=== PATIENT | male | born 1995 | race Caucasian/White ===

== ENCOUNTER 2020-10-02 08:40 | Emergency (ER) | payer OTHER, SELFPAY ==
[2020-10-02 08:43] VITALS: BP 174/89; PULSE 96; RESP 16; TEMP 36.9; O2SAT 96; BMI 39.5
--- NOTE | 2020-10-02 09:28 | ED.SKABFB ---
HPI - Skin/Abscess/Foreign Bdy General Chief complaint: Skin/Abscess/Foreign Body Stated complaint: abcess Time Seen by Provider: 10/02/20 08:42 Source: patient Mode of arrival: ambulatory Limitations: no limitations History of Present Illness MD complaint: abscess/boil Onset (ago): day(s) (2) Tetanus up to date: yes Location: buttocks Severity: moderate Quality: burning and aching Pain Consistency: constant Relieving factors: none Exacerbating factors: movement Context: other (hx of boils) Associated symptoms: denies other symptoms Treatments prior to arrival: none Related Data Previous Rx's Medication Instructions Recorded cephalexin 500 mg PO TID 7 Days #21 cap 10/02/20 doxycycline hyclate 100 mg PO BID 7 Days #14 cap 10/02/20 hydrocodone-acetaminophen 1 tab PO Q6H PRN #12 tab 10/02/20 ondansetron 4 mg PO Q8H PRN #20 tab 10/02/20 Allergies Allergy/AdvReac Type Severity Reaction Status Date / Time No Known Allergies Allergy Verified 10/02/20 08:49 [No Known Allergies*] Review of Systems Review of Systems: Constitutional : No Fever, No Chills ENT/Mouth : No sore throat, No Rhinorrhea Eyes: No Eye Pain, No Swelling, No Redness Cardiovascular : No Chest Pain, No SOB Respiratory : No Cough, No Sputum Gastrointestinal : No Nausea, No Vomiting, No Diarrhea, No abdominal Pain Genitourinary : No Dysuria, No Hematuria Musculoskeletal : No joint pain, No Myalgias, No Joint Swelling Skin : pos Skin Lesions, positive skin rash Neuro : No Weakness, No Numbness, No Headache Psych : No Anxiety, No Depression Heme/Lymph: No Bruising, No Bleeding,No Lymphadenopathy Endocrine : No Polyuria, No Polydipsia All other systems reviewed and are negative PMFSH Past Medical History Attestation statement: The following information was validated with the patient. Medical History Diabetes Pilonidal cyst Social History Social History Alcohol intake: never Smoking Status: Never smoker Smoked in Last 30 Days: No Use of substances other than those prescribed or required for medical reasons: No Advance Directives: No Advance Directives Information Provided: No Physical Exam Vital Signs: Vital Signs: Last Vital Signs Temp 98.5 F 10/02/20 08:43 Pulse 96 10/02/20 08:43 Resp 16 10/02/20 08:43 BP 174/89 H 10/02/20 08:43 Pulse Ox 96 10/02/20 08:43 Body Mass Index 39.5 Appearance: Alert. Oriented X3. No acute distress. Eyes: Pupils equal, round and reactive to light. ENT: Pharynx normal. Neck: Normal inspection. Neck supple. CVS: Normal heart rate and rhythm. Pulses normal. Respiratory: No respiratory distress. Breath sounds normal. Abdomen: Soft and nontender. Skin: Skin warm and dry. Normal skin color. Normal skin turgor. + R buttock large 4cm abscess, does not involve rectum, no crepitus, no pain out of proportion no extension of erythema Extremities: No lower extremity edema. No calf ttp Neuro: Oriented X 3. No motor deficit. No sensory deficit. Procedures Abscess I/D Site: other (R buttock) Side (if applicable): right Local Anesthetic: lidocaine 1% Amount of anesthesia used (mL): 5 Technique: needle aspiration and incised with blade Amount of fluid expressed (mL): 10 Sent for culture/gram staining?: No Irrigation: Yes Packing used?: iodoform MDM - Skin/Abscess/Foreign Bdy MDM Narrative Medical decision making narrative: 25 yo male with DM and hx of boils here with L buttock abscess, no systemic symptoms, no signs of deeper infection will need I/D and oral antibiotics, dispo per results and findings. Discharge Plan Discharge Clinical Impression: Abscess of skin or subcutaneous tissue Qualifiers: Site of cutaneous abscess: buttock Qualified Code(s): L02.31 - Cutaneous abscess of buttock Patient Disposition: Home, Self-Care Instructions: Abscess (ED) Additional Instructions: return to ED for any worsening symptoms or concerns Prescriptions: New hydrocodone-acetaminophen 5-325 mg tablet 1 tab PO Q6H PRN (Reason: pain) Qty: 12 RF: 0 ondansetron 4 mg tablet,disintegrating 4 mg PO Q8H PRN (Reason: nausea and vomiting) Qty: 20 RF: 0 cephalexin 500 mg capsule 500 mg PO TID 7 Days Qty: 21 RF: 0 doxycycline hyclate 100 mg capsule 100 mg PO BID 7 Days Qty: 14 RF: 0 Referrals: Tim Bell MD [Physician] - 1 week Martin Wilkinson MD [Primary Care Provider] - 2 days (wound check or ED) Stand Alone Forms: Work/School Release
[2020-10-02] MEDS: Lidocaine 4 % Cream KIT 1 APPL TOPICAL (09:42)
[2020-10-02] MEDS: Lidocaine HCl 1 % 20 ML VIAL SUBCUT (09:42)
[2020-10-02] MEDS: HYDROmorphone HCl 2 MG/ML VIAL IM (09:43)
== END 2020-10-02 10:33 | disposition home or self-care (01) ==
PROVIDERS: Emergency Provider Emergency Medicine; PCP Internal Medicine
DX: L02.31 Cutaneous abscess of buttock (principal); Z79.899 Other long term (current) drug therapy
CPT/HCPCS: 10060; 96372; 99283; 99284; J1170

== ENCOUNTER 2021-05-18 00:25 | Emergency (ER) | payer OTHER, SELFPAY ==
[2021-05-18 01:00] VITALS: BP 185/89; PULSE 94; RESP 20; TEMP 36.4; O2SAT 97; BMI 39.7
== END 2021-05-18 04:12 | disposition left against medical advice (07) ==
PROVIDERS: Emergency Provider Emergency Medicine
DX: L72.9 Follicular cyst of the skin and subcutaneous tissue, unspecified (principal)
CPT/HCPCS: 99281; 99282

== ENCOUNTER 2021-05-19 01:58 | Emergency (ER) | payer OTHER, SELFPAY ==
[2021-05-19 02:16] VITALS: BP 157/9; PULSE 98; RESP 14; TEMP 37.3; O2SAT 97; BMI 39.4
--- NOTE | 2021-05-19 03:06 | ED.SKABFB ---
HPI - Skin/Abscess/Foreign Bdy General Chief complaint: Skin/Abscess/Foreign Body Stated complaint: PT was here last night, cist underneath arm Time Seen by Provider: 05/19/21 03:01 Source: patient Mode of arrival: ambulatory Limitations: no limitations History of Present Illness HPI narrative: 25-year-old male who presents emergency department for evaluation of a left chest wall skin abscess. He states that the abscess started out as a small area approximately 1 week prior and is gotten progressively larger. He states that today there was a ?montalvo ?in the center of the abscess which he popped and try to drain the abscess unsuccessfully. This morning, the pain got worse therefore came to the emergency department for evaluation. Patient states that he has had 3 previous abscesses that was required drainage. He denied fever, chills, myalgias, arthralgias or fatigue. Related Data Previous Rx's Medication Instructions Recorded cephalexin 500 mg PO TID 7 Days #21 cap 10/02/20 doxycycline hyclate 100 mg PO BID 7 Days #14 cap 10/02/20 hydrocodone-acetaminophen 1 tab PO Q6H PRN #12 tab 10/02/20 ondansetron 4 mg PO Q8H PRN #20 tab 10/02/20 cephalexin 500 mg PO QID 5 Days #20 cap 05/19/21 Allergies Allergy/AdvReac Type Severity Reaction Status Date / Time No Known Allergies Allergy Verified 05/19/21 02:15 [No Known Allergies*] Review of Systems Review of Systems: Yes all other systems are reviewed and are negative PMFSH Past Medical History PMFSH Narrative: Social history: The patient denies tobacco use, he drinks alcohol rarely, he tries drug use. Medical History Diabetes Pilonidal cyst Social History Social History Alcohol intake: never Advance Directives: No Advance Directives Information Provided: No Physical Exam Vital Signs: Vital Signs: Last Vital Signs Temp 99.1 F 05/19/21 02:16 Pulse 98 05/19/21 02:16 Resp 14 05/19/21 02:16 BP 157/9 H 05/19/21 02:16 Pulse Ox 97 05/19/21 02:16 Body Mass Index 39.4 Const: General: cooperative and healthy appearing Orientation/consciousness: oriented to person and oriented to place Limitations: no limitations HENMT: Head: Yes normal to inspection Chest: Chest palpation & inspection: normal inspection of the chest Skin: Other: The patient has a 5 x 5 cm abscess to his left chest wall just inferior to the axillary region with increased warmth to the surrounding erythema, the abscess is flocculent. Neuro: General: oriented to person and oriented to place Psych: Appearance: grossly normal and well kempt Mental Status: mental status grossly normal Speech and movement: Normal speech and movement present Affect: normal affect Course Course Course Narrative: 25-year-old male who presents emergency department for evaluation of a left chest wall abscess x1 week. The patient's abscess was flocculent and ready to be drained. The abscess was drained approximately 50 cc of purulent material was expressed from the incision site, the abscess was packed with quarter-inch iodoform gauze. Patient was given ibuprofen 600 mg and Tylenol 975 mg orally for his pain. He was also given Keflex 500 mg orally to treat for possible surrounding cellulitis. Patient was started on Keflex 500 mg 4 times a day for 5 days. The patient was given verbal and printed instructions prior to discharge. The patient was advised to follow-up with their PCP in 2 days and to return to the emergency department if their symptoms get worse or if they develop any new symptoms that are concerning to them Procedures Abscess I/D Site: chest Side (if applicable): left Local Anesthetic: lidocaine 2% Amount of anesthesia used (mL): 10 Technique: incised with blade and other (Adhesions broken up in the wound with hemostat) Amount of fluid expressed (mL): 50 Sent for culture/gram staining?: Yes Irrigation: No Packing used?: iodoform (1/4 inch) Discharge Plan Discharge Clinical Impression: Cellulitis, Abscess of skin or subcutaneous tissue, Encounter for incision and drainage procedure Patient Disposition: Home, Self-Care Instructions: Abscess Incision and Drainage (DC) Additional Instructions: The abscess was packed with quarter-inch iodoform gauze. You can remove this packing in 4 days. If it falls off a for 4 days, it does not need to be reinserted. Take ibuprofen 200 mg pills, 3 pills every 6 hours as needed for pain. Take Tylenol (acetaminophen) 500 mg pills, 2 pills every 4 to 6 hours as needed for pain. Take Keflex 500 mg pills, 1 pill 4 times a day for 5 days. The patient was given verbal and printed instructions prior to discharge. The patient was advised to follow-up with their PCP in 2 days and to return to the emergency department if their symptoms get worse or if they develop any new symptoms that are concerning to them Prescriptions: New cephalexin 500 mg capsule 500 mg PO QID 5 Days Qty: 20 RF: 0 No Action hydrocodone-acetaminophen 5-325 mg tablet 1 tab PO Q6H PRN (Reason: pain) Qty: 12 RF: 0 ondansetron 4 mg tablet,disintegrating 4 mg PO Q8H PRN (Reason: nausea and vomiting) Qty: 20 RF: 0 cephalexin 500 mg capsule 500 mg PO TID 7 Days Qty: 21 RF: 0 doxycycline hyclate 100 mg capsule 100 mg PO BID 7 Days Qty: 14 RF: 0
[2021-05-19] MEDS: Ibuprofen 600 MG TABLET PO (03:13)
[2021-05-19] MEDS: cephALEXin 500 MG CAPSULE PO (03:13)
[2021-05-19] MEDS: Lidocaine HCl 2 % MPF 5 ML VIAL INFILTRATI ×2 (03:13)
[2021-05-19] MEDS: Acetaminophen 325 MG TABLET 975 MG PO (03:13)
--- NOTE | 2021-05-19 03:20 | PC.NURSE ---
CLEAN DRY DRESSING APPLIED OVER WOUND. EDUCATED ON SIGNS AND SYMPTOMS OF INFECTION.
== END 2021-05-19 03:28 | disposition home or self-care (01) ==
PROVIDERS: Emergency Provider Emergency Medicine Emergency Medical Services; PCP Internal Medicine
DX: L02.213 Cutaneous abscess of chest wall (principal); L03.313 Cellulitis of chest wall; E11.9 Type 2 diabetes mellitus without complications
CPT/HCPCS: 10060; 87071; 87205; 99283; 99284

== ENCOUNTER 2021-09-20 08:21 | Outpatient (REF) | payer OTHER, SELFPAY ==
[2021-09-20 09:00] LABS: COVID-19 Test Negative (Negative)
== END 2021-09-20 08:22 | disposition home or self-care (01) ==
LOC: HO.LAB 08:21
PROVIDERS: PCP Internal Medicine; Visit Provider Internal Medicine
DX: Z20.822 Contact with and (suspected) exposure to COVID-19 (principal)
CPT/HCPCS: 36415; 87635; C9803

== ENCOUNTER 2022-07-04 04:13 | Emergency (ER) | payer OTHER, SELFPAY ==
[2022-07-04 04:21] VITALS: BP 156/92; PULSE 95; RESP 16; TEMP 37.1; O2SAT 95; BMI 87.6
--- NOTE | 2022-07-04 04:28 | ED_ITS ---
HPI - URI/Sore Throat General Chief Complaint: General Medical Stated Complaint: pink eye, sore throat Time Seen by Provider: 07/04/22 04:16 Source: patient Mode of arrival: ambulatory Limitations: no limitations History of Present Illness MD elicited complaint: nasal congestion, sinus pain and other (drainage from eyes) Onset (ago): day(s) (3) Consistency: constant Severity: moderate Description of mucous: yellow and green Able to tolerate fluids by mouth: Yes Exacerbating factors: nothing Relieving factors: nothing Associated symptoms: nasal congestion, sore throat and other (red eyes, drainage from eyes) Treatments prior to arrival: none Related Data Previous Rx's Medication Instructions Recorded cephalexin 500 mg capsule 500 mg PO TID 7 days #21 caps 10/02/20 doxycycline hyclate 100 mg capsule 100 mg PO BID 7 days #14 caps 10/02/20 hydrocodone 5 mg-acetaminophen 325 1 tab PO Q6H PRN pain #12 tabs 10/02/20 mg tablet ondansetron 4 mg disintegrating 4 mg PO Q8H PRN nausea and 10/02/20 tablet vomiting #20 tabs cephalexin 500 mg capsule 500 mg PO QID 5 days #20 caps 05/19/21 amoxicillin 875 mg-potassium 1 tab PO BID #14 tabs 07/04/22 clavulanate 125 mg tablet erythromycin 5 mg/gram (0.5 %) eye 0.5 inch ophthalmic (eye) BID 7 07/04/22 ointment days #3.5 grams Allergies Allergy/AdvReac Type Severity Reaction Status Date / Time No Known Allergies Allergy Verified 05/19/21 02:15 [No Known Allergies*] Review of Systems Review of Systems: Constitutional : no Fever, no Chills ENT/Mouth : positive sore throat, positive runny nose Eyes: pos Discharge, pos redness Cardiovascular : No Chest Pain, No SOB Respiratory : No Cough, No Sputum Gastrointestinal : No Nausea, No Vomiting, No Diarrhea Genitourinary : No Dysuria, No Urinary Frequency Musculoskeletal :no Myalgia Skin : No rash Neuro : No Headache PMFSH Past Medical History Medical History Diabetes Pilonidal cyst Social History Social History Alcohol intake: never Patient Tobacco Use Status: Never used Tobacco Advance Directives: No Advance Directives Information Provided: Yes Physical Exam Vital Signs: Vital Signs: Last Vital Signs Temp 98.7 F 07/04/22 04:21 Pulse 95 07/04/22 04:21 Resp 16 07/04/22 04:21 BP 156/92 H 07/04/22 04:21 Pulse Ox 95 07/04/22 04:21 O2 Del Method 07/04/22 04:21 BMI result Body Mass Index 87.6 Appearance: Alert. Oriented X3. No acute distress. Eyes: Pupils equal, round and reactive to light. injection and erythema with scant yellow exudates from both eyes ENT: Pharynx mild erythema no swelling no exudates, uvula midline, mild swelling over bilateral max sinus with mild ttp Neck: Normal inspection. Neck supple. CVS: Normal heart rate and rhythm. Pulses normal. Respiratory: No respiratory distress. Abdomen: Soft and nontender. Skin: Skin warm and dry. Normal skin color. Normal skin turgor. Extremities: No lower extremity edema. No calf ttp Neuro: Oriented X 3. No motor deficit. No sensory deficit. MDM - URI/Sore Throat MDM Narrative Medical decision making narrative: 26 yo male with reports of 3 days of sinus congestion, thick nasal secretions now with drainage from right eye - he also has mild sore throat no signs of [employer]CH[employer]IC or deeper space infection. At this time suspect sinusitis will start on augmentin and ointment does not wear contact lens Discharge Plan Discharge Clinical Impression: Sinusitis, Conjunctivitis Patient Disposition: Home, Self-Care Instructions: Sinusitis (ED), Conjunctivitis (ED) Additional Instructions: return to ED for any worsening symptoms or concerns COVID and strep negative Prescriptions: New amoxicillin-pot clavulanate 875-125 mg tablet 1 tab PO BID Qty: 14 0RF erythromycin 5 mg/gram (0.5 %) ointment 0.5 inch ophthalmic (eye) BID 7 Days Qty: 3.5 0RF No Action hydrocodone-acetaminophen 5-325 mg tablet 1 tab PO Q6H PRN (Reason: pain) Qty: 12 0RF ondansetron 4 mg tablet,disintegrating 4 mg PO Q8H PRN (Reason: nausea and vomiting) Qty: 20 0RF cephalexin 500 mg capsule 500 mg PO TID 7 Days Qty: 21 0RF doxycycline hyclate 100 mg capsule 100 mg PO BID 7 Days Qty: 14 0RF cephalexin 500 mg capsule 500 mg PO QID 5 Days Qty: 20 0RF Stand Alone Forms: Work/School Release
[2022-07-04 04:42] LABS: Strep A Nucleic Acid Negative (Negative)
[2022-07-04 04:48] LABS: COVID-19 Test Negative (Negative); IDNOW Serial# 16C4AD1C
[2022-07-04] MEDS: Erythromycin Base 0.5% Oph Oin 1 GM TUBE 1 CM EYE-BOTH (04:58)
[2022-07-04] MEDS: Amoxicillin/Potassium Clav 875 MG TABLET PO (04:58)
--- NOTE | 2022-07-04 05:00 | PC.NURSE ---
pt a&o, no sob or chest pain. medicated per jan. Reviewed discharge instructions with pt . pt verbalized understanding.
== END 2022-07-04 05:01 | disposition home or self-care (01) ==
PROVIDERS: Emergency Provider Emergency Medicine
DX: J32.0 Chronic maxillary sinusitis (principal); H10.9 Unspecified conjunctivitis; Z20.822 Contact with and (suspected) exposure to COVID-19; J02.9 Acute pharyngitis, unspecified
CPT/HCPCS: 87635; 87651; 99282; 99283

== ENCOUNTER 2023-09-25 18:28 | Emergency (ER) | payer OTHER, SELFPAY ==
--- NOTE | ~2023-09-25 | XR_ITS ---
EXAMINATION: XR FOOT, RIGHT CLINICAL INFORMATION: Right foot injury COMPARISON: None available. TECHNIQUE: AP, lateral, and oblique views of the right foot. FINDINGS: Subtle nondisplaced fracture involving the proximal metadiaphysis of the fifth proximal phalanx. Correlation with point tenderness. Joint spaces and alignment are otherwise maintained soft tissue swelling overlying the fracture site. XR/XR foot RT min 3V IMPRESSION: 1. Subtle nondisplaced fracture involving the proximal metadiaphysis of the fifth proximal phalanx. Correlation with point tenderness. 2. Soft tissue swelling overlying the fracture site.
[2023-09-25 18:52] VITALS: BP 165/106; PULSE 77; RESP 18; TEMP 36.4; O2SAT 97; BMI 40.4
--- NOTE | 2023-09-25 19:56 | ED.GENADULT ---
HPI - General Adult General Chief complaint: Extremity Injury, Lower Stated complaint: injured toe Time Seen by Provider: 09/25/23 19:56 Source: patient Mode of arrival: ambulatory Limitations: no limitations History of Present Illness HPI narrative: 28 year old male presents w/ right great toe pain was swinging his foot by a chimney and got it stuck under the chimney [employer]. Reports it looks swollen. Has broken a toe in the past and it looks similar. No numbness, tingling, fevers, chills. Related Data Previous Rx's Medication Instructions Recorded cephalexin 500 mg capsule 500 mg PO TID 7 days #21 caps 10/02/20 doxycycline hyclate 100 mg capsule 100 mg PO BID 7 days #14 caps 10/02/20 hydrocodone 5 mg-acetaminophen 325 1 tab PO Q6H PRN pain #12 tabs 10/02/20 mg tablet ondansetron 4 mg disintegrating 4 mg PO Q8H PRN nausea and 10/02/20 tablet vomiting #20 tabs cephalexin 500 mg capsule 500 mg PO QID 5 days #20 caps 05/19/21 amoxicillin 875 mg-potassium 1 tab PO BID #14 tabs 07/04/22 clavulanate 125 mg tablet erythromycin 5 mg/gram (0.5 %) eye 0.5 inch ophthalmic (eye) BID 7 07/04/22 ointment days #3.5 grams ketorolac 10 mg tablet 10 mg PO TID PRN pain 5 days #15 09/25/23 tabs Allergies Allergy/AdvReac Type Severity Reaction Status Date / Time No Known Allergies Allergy Verified 09/25/23 18:52 [No Known Allergies*] Review of Systems Review of Systems: Constitutional : No Weight loss, No Fever, No Chills, No Fatigue, No Malaise ENT/Mouth : No sore throat, No Rhinorrhea Eyes: No Eye Pain, No Swelling, No Redness Cardiovascular : No Chest Pain, No SOB, No Dyspnea on Exertion, No Orthopnea, No Edema, No Palpitations Respiratory : No Cough, No Sputum, No Wheezing Gastrointestinal : No Nausea, No Vomiting, No Diarrhea, No Constipation, No abdominal Pain, No Hematochezia, No Melena Genitourinary : No Dysuria, No Urinary Frequency, No Hematuria, Musculoskeletal : + joint pain, No Myalgias, + Joint Swelling Skin : No Skin Lesions, No rash Neuro : No Weakness, No Numbness, No Dizziness, No Headache Psych : No Anxiety/Panic, No Depression All other systems reviewed and are negative Yes all other systems are reviewed and are negative [facility] Past Medical History Attestation statement: The following information was validated with the patient. Source: old records reviewed and nursing notes reviewed Medical History Diabetes Pilonidal cyst Social History Social History Alcohol intake: never Patient Tobacco Use Status: Never used Tobacco Physical Exam ED Vital Signs: Vital Signs - 24 hr 09/25/23 18:52 Temperature 97.6 F Pulse Rate 77 Respiratory Rate 18 Blood Pressure 165/106 H Pulse Oximetry 97 Oxygen Delivery Method Room Air BMI result Body Mass Index 40.4 vss- HTN likely from pain Appearance: Alert.? Oriented X3.? No acute distress.? Head: Normocephalic, atraumatic, no step-offs or deformities Eyes: Pupils equal, round and reactive to light.? CVS: Normal heart rate and rhythm.? Pulses normal.? Respiratory: No respiratory distress.? Breath sounds normal.? Abdomen: Soft and nontender.? Skin: Skin warm and dry.? Normal skin color.? Normal skin turgor.? Extremities: No lower extremity edema.? No calf ttp. 5/5 strength to bilateral upper and lower extremities + TTP to right 5th toe, 2+ DP, AT, PT pulses equal and b/l. Normal senation distally Back: No midline tenderness, no C-spine tenderness, full range of motion, no CVA tenderness bilaterally Neuro: Oriented X 3.? No motor deficit.? No sensory deficit. CN 2-12 intact Course Reevaluation(s) Reevaluation #1: X-ray showing a subtle nondisplaced fracture of the metadiaphysis of the this proximal phalanx. Will give walking shoe, crutches give Toradol for pain control. Educated patient on diagnosis and treatment plan, answered all question, patient verbalizes understanding. At this time patient will be discharged home, advised to return with new or worsening symptoms. Educated on worrisome signs and symptoms and when to return. At this time I feel comfortable discharge home. Time: 20:02 Medical Decision Making Medical Decision Making MDM Narrative: 28 year old male presents w/ right 5th toe pain on right s/p jamming toe. Plan- TTP to right 5th toe. NV intact Will rule out fx, dislocations. Unlikely NV compromise threat to limb. Other differentials include sprain/strain Plan- xray Differential Diagnosis Differential Diagnoses: The differential diagnosis associated with the presentation includes Will rule out fx, dislocations. Unlikely NV compromise threat to limb. Other differentials include sprain/strain Admission/Observation Consideration of admission/observation: Escalation of care including admission/observation considered unlikely Independent Interpretation I performed an independent interpretation of an: Plain X-Ray Radiology Impression Discussion of test interpretation with radiology: I have reviewed the radiologist's reading. Prescription Management I considered prescription management with: Pain Medication Discharge Plan Discharge Clinical Impression: Fracture of toe Patient Disposition: Home, Self-Care Instructions: Crutch Instructions (ED), Foot Fracture in Adults (ED), Post Surgical Shoe (ED) Additional Instructions: Take your medications as prescribed. If you were prescribed antibiotics today, it is important that you take your medication to their entirety, do not skip any doses, do not finish them early. Follow-up with your primary care provider this week. Return to the emergency department with new or worsening symptoms. In case of emergency call 911 Toradol has been sent to your pharmacy, you tolerated this well in the department. Please take this as prescribed do not take this with ibuprofen, or other NSAIDs, do not mix this with alcohol. Side effects of this medication including increased risk for bleeding and possible kidney injury. XR/XR foot RT min 3V IMPRESSION: 1. Subtle nondisplaced fracture involving the proximal metadiaphysis of the fifth proximal phalanx. Correlation with point tenderness. 2. Soft tissue swelling overlying the fracture site. Prescriptions: New ketorolac 10 mg tablet 10 mg PO TID PRN (Reason: pain) 5 Days Qty: 15 0RF No Action hydrocodone-acetaminophen 5-325 mg tablet 1 tab PO Q6H PRN (Reason: pain) Qty: 12 0RF ondansetron 4 mg tablet,disintegrating 4 mg PO Q8H PRN (Reason: nausea and vomiting) Qty: 20 0RF cephalexin 500 mg capsule 500 mg PO TID 7 Days Qty: 21 0RF doxycycline hyclate 100 mg capsule 100 mg PO BID 7 Days Qty: 14 0RF cephalexin 500 mg capsule 500 mg PO QID 5 Days Qty: 20 0RF amoxicillin-pot clavulanate 875-125 mg tablet 1 tab PO BID Qty: 14 0RF erythromycin 5 mg/gram (0.5 %) ointment 0.5 inch ophthalmic (eye) BID 7 Days Qty: 3.5 0RF Referrals: [facility] [Provider Group] - 2 days Martin Wilkinson MD [Primary Care Provider] - 2 days Stand Alone Forms: Work/School Release
[2023-09-25] MEDS: Ketorolac Tromethamine 15 MG/ML VIAL 30 MG IM (20:16)
== END 2023-09-25 20:18 | disposition home or self-care (01) ==
PROVIDERS: Emergency Provider Student in an Organized Health Care Education/Training Program; PCP Internal Medicine
DX: S92.514A Nondisplaced fracture of proximal phalanx of right lesser toe(s), initial encounter for closed fracture (principal); W22.09XA Striking against other stationary object, initial encounter; Y93.89 Activity, other specified; Y92.9 Unspecified place or not applicable; Y99.9 Unspecified external cause status
CPT/HCPCS: 73630; 96372; 99283; 99284; J1885

== ENCOUNTER 2023-10-09 07:58 | Outpatient (AMB) | payer OTHER, SELFPAY ==
--- NOTE | 2023-10-09 08:23 | MHC.OFFVIS ---
Intake Vital Signs 10/09/23 08:27 Height 5 ft 11 in Weight 290 lb BMI 40.4 Intake Visit Reasons: Fc- right 5th toe Fx Intake Note: Salvatore hwang 28 year old male presents today as a new patient for an evaluation of right 5th metatarsal fx, DOI 09/25/23. Patient reports swinging his foot over a baby gate hitting his small toe on the side of a chimney. He presented to [facility] same day where xrays were taken and placed in a post op shoe. He discontinued wearing walking post op shoe a few days later. Currently pain with certain activities and in mornings. Allergies No Known Allergies [No Known Allergies*] Allergy (Verified 10/09/23 08:30) Medication List - Last Reconciled 10/09/23 by Naeem Templeton PA-C amoxicillin-pot clavulanate 875-125 mg 1 tab PO BID atorvastatin 20 mg PO DAILY cephalexin 500 mg PO TID 7 days cephalexin 500 mg PO QID 5 days dapagliflozin propanediol (Farxiga) 10 mg PO DAILY doxycycline hyclate 100 mg PO BID 7 days dulaglutide (Trulicity) 1.5 mg subcut QWEEK erythromycin 0.5 inches ophthalmic (eye) BID 7 days hydrocodone-acetaminophen 5-325 mg 1 tab PO Q6H PRN ketorolac 10 mg PO TID PRN 5 days metformin ER 500 mg PO TID ondansetron 4 mg PO Q8H PRN HPI Fc- right 5th toe Fx HPI Details 28-year-old male who presents to the office today for right 5th toe injury s/p swinging his foot over a baby gate and hitting his small toe on the side of a chimney, 09/25/23. He was seen at ED the same day where he x-rays were performed and he was placed in a shoe which he reports he discontinued wearing after a few days. He currently states he has pain in his foot which is aggravated with certain activities and in the mornings. [facility] Medical History Diabetes Pilonidal cyst Social History (Updated 10/09/23 @ 08:27 by JULIA Hunt) Alcohol intake: never Patient Tobacco Use Status: Never used Tobacco Current occupational status: employed Current occupation: services manager Review of Systems Const All systems reviewed & are unremarkable except as noted in HPI and below Physical Exam Vital Signs: BMI result Body Mass Index 40.4 Const General: cooperative, healthy appearing, comfortable, no acute distress, well developed and alert Orientation/consciousness: patient oriented x3 HEENT Head: Yes normal to inspection, Yes normocephalic and Yes atraumatic Eyes General: appearance normal, both eyes and all related structures Resp Effort & Inspection: normal respiratory effort and able to speak in complete sentences Cardio Rate: regular rate Peripheral pulses: Peripheral pulses 2+ throughout GI Palpation (GI): Soft to palpation Skin Lesions: no lesions Rashes: no rashes Neuro General: patient oriented x3 Extrem Other: Right foot: Skin intact. There is tenderness along the proximal phalanx of the 5th metatarsal. Sensation intact. EHL intact. No pain along the mediolateral malleolus. Neurovascularly intact. Office Procedures Fracture Care Fracture Billing Code: Fracture Billing Code Results Reviewed Results Reviewed: Xr of the right foot obtained on 09/25/23 IMPRESSION: 1. Subtle nondisplaced fracture involving the proximal metadiaphysis of the fifth proximal phalanx. Correlation with point tenderness. 2. Soft tissue swelling overlying the fracture site. Assessment & Plan Assessment & Plan (1) Fracture of toe: Code(s): S92.919A - Unspecified fracture of unspecified toe(s), initial encounter for closed fracture Qualifiers: Encounter type: initial encounter Toe: lesser toe Fracture type: closed Phalanx: proximal Fracture alignment: nondisplaced Plan He will continue with comfort shoe wear and weight bear as tolerated. He can continue with activities as tolerated but he does understand that since this is weight bearing fracture site, he may have some more discomfort then if he were non weight bearing. He does understand that with his job excursion of having to be on his feet and kneeling this does cause increased risk of inflammation and discomfort. I do not feel this will inhibit the fracture healing itself. He should wear comfort shoe at work that are stiff soled and he should ice, take NSAIDS and elevate when he is able to. He will follow-up with us as needed unless symptoms arise. Patient Instructions: Scribed for Naeem Templeton PA-C, by Mayco Chang medical technologist hematology, on 10/09/2023 at 8:30 AM EST. Naeem Mike PA-C, have personally reviewed and agree with the information entered by the scribe. Coding Level of Care Code New Pt Level 3 (65831) Diagnoses Fracture of toe S92.919A Encounter type: initial encounter Toe: lesser toe Fracture type: closed Phalanx: proximal Fracture alignment: nondisplaced CPT Codes Fracture Care - Fracture Billing Code: Fracture Billing Code ([id number])
[2023-10-09 08:27] VITALS: BMI 40.4
== END 2023-10-09 09:17 | disposition home or self-care (01) ==
PROVIDERS: PCP Internal Medicine; Visit Provider Physician Assistant
DX: S92.355A Nondisplaced fracture of fifth metatarsal bone, left foot, initial encounter for closed fracture (principal)
CPT/HCPCS: 99203

== ENCOUNTER → 2023-10-09 07:58 | Outpatient (BNVA) | payer OTHER, SELFPAY | PROVIDERS: PCP Internal Medicine; Visit Provider Physician Assistant | DX: S92.354A Nondisplaced fracture of fifth metatarsal bone, right foot, initial encounter for closed fracture (principal); W22.09XA Striking against other stationary object, initial encounter; Y93.39 Activity, other involving climbing, rappelling and jumping off; Y92.9 Unspecified place or not applicable; Y99.8 Other external cause status | CPT/HCPCS: 99202 ==

== ENCOUNTER 2024-08-18 08:22 | Emergency (ER) | payer OTHER, SELFPAY ==
[2024-08-18 08:31] VITALS: BP 140/79; PULSE 80; RESP 18; TEMP 36.6; O2SAT 98; BMI 37.4
--- NOTE | 2024-08-18 08:54 | ED.GENADULT ---
HPI - General Adult General Chief complaint: Abdominal Pain Stated complaint: Hernia Time Seen by Provider: 08/18/24 08:54 History of Present Illness ED Provider: Ez DELGADILLO narrative: The patient is a 29-year-old male. He is a type 2 diabetic on metformin. He works as a senior construction project manager. For about a week he has had pain in the region of his belly button and he has a sense of some swelling at the belly button. His last meal was yesterday evening. This morning he had an episode of vomiting and worsening pain around the umbilicus. He came to the emergency room for evaluation. No fever, sweats, chills. He has been moving his bowels normally. He currently has no nausea and is feeling hungry. Related Data Home Medications ?Medication ?Instructions ?Recorded ?Confirmed atorvastatin 20 mg tablet 20 mg PO DAILY 10/09/23 10/09/23 dapagliflozin propanediol 10 mg 10 mg PO DAILY 10/09/23 10/09/23 tablet (Farxiga) dulaglutide 1.5 mg/0.5 mL 1.5 mg subcut QWEEK 10/09/23 10/09/23 subcutaneous pen injector ([facility]) metformin 500 mg tablet,extended 500 mg PO TID 10/09/23 10/09/23 release 24 hr Previous Rx's ?Medication ?Instructions ?Recorded cephalexin 500 mg capsule 500 mg PO TID 7 days #21 caps 10/02/20 doxycycline hyclate 100 mg capsule 100 mg PO BID 7 days #14 caps 10/02/20 hydrocodone 5 mg-acetaminophen 325 1 tab PO Q6H PRN pain #12 tabs 10/02/20 mg tablet ondansetron 4 mg disintegrating 4 mg PO Q8H PRN nausea and 10/02/20 tablet vomiting #20 tabs cephalexin 500 mg capsule 500 mg PO QID 5 days #20 caps 05/19/21 amoxicillin 875 mg-potassium 1 tab PO BID #14 tabs 07/04/22 clavulanate 125 mg tablet erythromycin 5 mg/gram (0.5 %) eye 0.5 inch ophthalmic (eye) BID 7 07/04/22 ointment days #3.5 grams ketorolac 10 mg tablet 10 mg PO TID PRN pain 5 days #15 09/25/23 tabs Allergies Allergy/AdvReac Type Severity Reaction Status Date / Time No Known Allergies Allergy Verified 08/18/24 08:33 [No Known Allergies*] Review of Systems Review of Systems: Yes all other systems are reviewed and are negative [facility] Past Medical History Medical History Diabetes Pilonidal cyst Social History Social History (Updated 10/09/23 @ 08:27 by JULIA Hunt) Alcohol intake: never Patient Tobacco Use Status: Never used Tobacco Advance Directives: No Advance Directives Information Provided: Yes Current occupational status: employed 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 He does not appear in overt distress or seem obviously toxic. HENMT Other: Face is symmetrical, mucous membranes moist Eyes Other: Pupils are round equal, conjunctivae clear Neck Other: Moving his neck easily Resp Effort & Inspection: normal respiratory effort Auscultation: clear to auscultation bilaterally Cardio Rate: regular rate Rhythm: regular rhythm Heart sounds: S1 normal heart sound present and S2 normal heart sound present GI Other: The patient's abdomen is soft. There is some mild tenderness in the region of the umbilicus but I do not feel an extruded umbilical sac or other herniated material. I think there is a small, palpable circular defect in the abdominal musculature in this area. The remainder of the abdomen is soft and nontender. Skin Other: Skin is dry and unremarkable. No erythema or discoloration in the region of the umbilicus Neuro Other: The patient is awake, alert, pleasant, cooperative. Face is symmetrical. Speech is clear. Moving extremities normally. Extrem Other: No peripheral edema Medical Decision Making Medical Decision Making MDM Narrative: The patient is a 29-year-old senior construction project manager who has been having abdominal discomfort intermittently for the last week. His symptoms seem worse with lifting and exertion generally. I think he probably has a hernial defect. I do not think he has any significant amount of herniated material at the moment. The patient does not seem toxic or ill otherwise. I think this can be referred to the surgery clinic as an outpatient. He will be given a work note for 2 weeks with no heavy lifting or significant exertions. He was instructed on trying to reduce any hernia if he has a recurrence of symptoms. He should lie down and take deep breaths and try to reduce any herniated contents. He should return to the emergency room if significantly worse. Discharge Plan Discharge Clinical Impression: Umbilical hernia Patient Disposition: Home, Self-Care Instructions: Umbilical Hernia (ED) Additional Instructions: I believe that you have an umbilical hernia which will need to be evaluated by a surgeon soon. Please contact the General surgery office today to set up a prompt follow up appointment. In the meantime please avoid any activities that exacerbate your discomfort. Avoid heavy lifting or straining. I have provided a work note for this purpose. If you feel that the hernia is out and is bothering you a lot please lie down and take slow deep breaths to try to push it back in. If at any point you feel significantly worse please return to the emergency room for further evaluation here. Prescriptions: No Action hydrocodone-acetaminophen 5-325 mg tablet 1 tab PO Q6H PRN (Reason: pain) Qty: 12 0RF ondansetron 4 mg tablet,disintegrating 4 mg PO Q8H PRN (Reason: nausea and vomiting) Qty: 20 0RF cephalexin 500 mg capsule 500 mg PO TID 7 Days Qty: 21 0RF doxycycline hyclate 100 mg capsule 100 mg PO BID 7 Days Qty: 14 0RF cephalexin 500 mg capsule 500 mg PO QID 5 Days Qty: 20 0RF amoxicillin-pot clavulanate 875-125 mg tablet 1 tab PO BID Qty: 14 0RF erythromycin 5 mg/gram (0.5 %) ointment 0.5 inch ophthalmic (eye) BID 7 Days Qty: 3.5 0RF ketorolac 10 mg tablet 10 mg PO TID PRN (Reason: pain) 5 Days Qty: 15 0RF Farxiga 10 mg tablet 10 mg PO DAILY metformin 500 mg tablet extended release 24 hr 500 mg PO TID Trulicity 1.5 mg/0.5 mL pen injector 1.5 mg subcut QWEEK atorvastatin 20 mg tablet 20 mg PO DAILY Referrals: [facility] [Provider Group] (symptomatic umbilical hernia) Stand Alone Forms: Work/School Release Print Language: [place]
[2024-08-18 09:42] VITALS: BP 140/79; PULSE 80; RESP 18; TEMP 36.6; O2SAT 98
== END 2024-08-18 09:43 | disposition home or self-care (01) ==
PROVIDERS: Emergency Provider Emergency Medicine; PCP Internal Medicine
DX: K42.9 Umbilical hernia without obstruction or gangrene (principal)
CPT/HCPCS: 99282

== ENCOUNTER 2024-08-24 08:24 | Emergency (ER) | payer OTHER, SELFPAY ==
[2024-08-24 08:28] VITALS: BP 131/88; PULSE 78; RESP 20; TEMP 36.3; O2SAT 98; BMI 37.4
[2024-08-24 08:45] LABS: MANUAL DIFF FLAG NO
[2024-08-24 08:48] LABS: Basophils Absolute Auto 0.1 X10*3/uL (0.0-0.2); Basophils Percent Auto 0.5 % (0-2); Eosinophils Absolute Auto 0.4 X10*3/uL (0.0-0.4); Eosinophils Percent Auto 3.6 % (0-4); Hematocrit 48.3 % (42.0-52.0); Hemoglobin 16.3 g/dl (14.0-18.0); Imm Gran Abs Auto 0.04 X10*3/uL (0.00-0.03); Imm Gran Pct Auto 0.4 % (0.0-0.4); Lymphocytes Absolute Auto 2.3 X10*3/uL (1.2-4.9); Lymphocytes Percent Auto 22.3 % (20-40); Mean Corpuscular HGB Conc 33.7 g/dl (31.0-36.0); Mean Corpuscular Hemoglobin 28.2 pg (27.0-33.0); Mean Corpuscular Volume 83.4 fL (80.0-98.0); Mean Platelet Volume 11.7 fL (9.4-12.4); Monocytes Absolute Auto 0.5 X10*3/uL (0.1-1.2); Monocytes Percent Auto 5.2 % (2-11); Neutrophils Absolute Auto 7.1 x10*3/uL (2.0-8.3); Platelet Count 213 X10*3/uL (160-400); Red Blood Count 5.79 X10*6/uL (4.60-5.80); Red Cell Distribution Width 12.6 % (11.0-16.0); White Blood Count 10.4 X10*3/uL (4.8-10.8)
[2024-08-24 08:49] LABS: Appearance Urine Clear; Color Urine Yellow; Glucose Urine UA >=1000 mg/dL (Negative); Leukocyte Esterase Urine Negative (Negative); Nitrite Urine Negative (Negative); PH 5.5 (5.0-9.0); Specific Gravity - Urine >= 1.030 (1.005-1.025); UMIC TRIGGER UACC YES; Urine Blood Negative (Negative); Urine Ketones Negative (Negative); Urine Protein Trace mg/dL (Neg-Trace)
[2024-08-24 08:58] LABS: Bacteria Urine None Seen (None Seen); Hyaline Casts Urine 0-2 /LPF (0-2); RBC Urine 0-2 /HPF (0-2); Squamous Epithelial Cell Urine 0-2 /HPF (0-2); WBC Urine 0-5 /HPF (0-5)
[2024-08-24 09:58] LABS: Alanine Aminotransferase 55 U/L (0-40); Albumin Level 4.5 g/dL (3.5-5.0); Alkaline Phosphatase 102 U/L (39-117); Anion Gap 13 (12-20); Aspartate Amino Transferase 38 U/L (5-37); Bilirubin Direct 0.3 mg/dL (0.0-0.5); Bilirubin Total 1.3 mg/dL (0.0-1.0); Blood Urea Nitrogen 15 mg/dL (9-16); Calcium 10.5 mg/dL (8.4-10.2); Carbon Dioxide 29 mmol/L (22-29); Chloride 101 mmol/L (96-108); Creatinine Clr Calc Pharmacy 144.4; Estimated Glomerular Filt Rate > 60; Glucose Random 207 mg/dL (60-115); Lipase 38 U/L (8-78); Potassium 4.7 mmol/L (3.3-5.1); Sodium 138 mmol/L (135-145)
== END 2024-08-24 10:46 | disposition left against medical advice (07) ==
PROVIDERS: Emergency Provider Emergency Medicine; PCP Internal Medicine
DX: R11.2 Nausea with vomiting, unspecified (principal)
CPT/HCPCS: 36415; 80048; 80076; 81001; 83690; 85025; 99281; 99282

== ENCOUNTER 2024-08-25 09:10 | Outpatient (AMB) | payer OTHER, SELFPAY ==
--- NOTE | 2024-08-25 09:11 | MHC.OFFVIS ---
Vital Signs 08/25/24 09:20 Height 5 ft 11 in Weight 269 lb BMI 37.5 BP 153/72 H Blood Pressure Location Rt brachial Position Sitting Pulse 72 Intake Visit Reasons: Umbilical hernia Intake Note: Patient referred after ER visit on 08-18-2024. Patient c/o: umbilical hernia. First noticed August 13. Pain. On and off nausea and vomiting. 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 Patient presents here for further evaluation. It is increasing in size, become more symptomatic. He would like to have it repaired. He has no other GI issues or complaints. He is starting a diet. Having regular bowel habits. Chart was reviewed and patient evaluated ON LICENSE OF [facility] Medical History Pilonidal cyst Diabetes Social History Alcohol intake: never Patient Tobacco Use Status: Never used Tobacco Current occupational status: employed Current occupation: freight checkermanager regulatory Exam Vital Signs: Last Vital Signs Pulse 72 08/25/24 09:20 BP 153/72 H 08/25/24 09:20 BMI result Body Mass Index 37.5 Const Other: Well-developed male in no acute distress Chest Other: Chest breath sounds bilaterally, HS 1 in 2 GI Other: Patient was examined supine and standing with Valsalva. Bilateral groin exam negative. Genitalia within normal limits. Roughly 3 cm irreducible umbilical hernia. Assessment & Plan Assessment & Plan (1) Incarcerated umbilical hernia: Code(s): K42.0 - Umbilical hernia with obstruction, without gangrene Category: Surgical Plan Risks, benefits, alternatives of open umbilical hernia repair with mesh reviewed with the patient and included but not limited to bleeding, infection, recurrence, numbness, pain, scarring, bowel injury, and the patient wished to proceed. All questions answered. Arrangements were made for this. Coding Level of Care Code New Pt Level 5 (34539) Diagnoses Incarcerated umbilical hernia K42.0
[2024-08-25 09:20] VITALS: BP 153/72; PULSE 72; BMI 37.5
== END 2024-08-25 09:31 | disposition home or self-care (01) ==
PROVIDERS: PCP Internal Medicine; Visit Provider Surgery
DX: K42.0 Umbilical hernia with obstruction, without gangrene (principal)
CPT/HCPCS: 99204

== ENCOUNTER → 2024-08-25 09:10 | Outpatient (BNVA) | payer OTHER, SELFPAY | PROVIDERS: PCP Internal Medicine; Visit Provider Surgery | DX: K42.0 Umbilical hernia with obstruction, without gangrene (principal) | CPT/HCPCS: 99202 ==